=== PATIENT | female | born 1950 | race Caucasian/White ===

== ENCOUNTER → 2016-07-09 | Outpatient (CLI) | payer OTHER ==
[~2016-07-09] MED LIST: ASPIRIN ENTERI325 M1 PO; B12 PO; BYSTOLIC5 MG PO; CALCIUM + VITAM1 TAB PO; COREG3.125 MG PO; DAILY VALUE1 EACH PO; GARLIC1000 MG PO; LISINOPRIL20 MG PO; POTASSIUM99 M1 PO; SIMVASTATIN20 MG PO; VITAMIN C500 MG PO; VITAMIN E400 UNI2 PO
--- NOTE | ~2016-07-09 | MY11 ---
[facility] A Service of [facility] RADIOLOGY TEXT RESULTS PATIENT: REMINGTON VARGHESE LOCATION: [facility] : 54 UNIT #: [id number] AGE: [address]: Sandor Saenz MD SEX: F ORDER DR: [id number] [facility] [address] [place], [place] [address] [id number] MR#: [id number] Acc #: [id number] NAME: REMINGTON VARGHESE : 1950 SEX: F STUDY DATE/TIME: 07/09/2016 11:03 UNIT: [facility] ROOM: STUDY DESCRIPTION: MY Mammogram Screening Dig Sheng Attending Physician: Sandor Saenz M.D. Ordering Physician: Sandor Saenz M.D. Primary Care Physician: Sandor Saenz M.D. MEDICAL IMAGING REPORT This report is preliminary unless electronic signature is present EXAM Screening mammogram 07/09 INDICATIONS 65-year-old with no personal or family history of breast cancer. No current complaints. FINDINGS Routine digital screening views of both breasts were obtained. Study is reviewed with an FDA-approved CAD device. COMPARISON Comparison made with 07/07/2015, 06/07/2014, 12/17/2012, 10/31/2011, 07/28/2010. Breast parenchyma shows scattered fibroglandular densities. There are no new masses or suspicious microcalcifications. IMPRESSION Negative mammogram. Routine screen 1 year recommended. Patients over the age of 40 are entered into a reminder system with target due date for the next mammogram. A result letter will also be sent to the patient. BIRADS: 1 - negative Dictated by... Can Skaggs Jr., M.D. [facility] A Service of [facility] RADIOLOGY TEXT RESULTS PATIENT: REMINGTON VARGHESE LOCATION: [facility] : 54 UNIT #: [id number] AGE: [address]: Sandor Saenz MD SEX: F ORDER DR: THIS IS AN ELECTRONICALLY VERIFIED REPORT Can Skaggs Jr., M.D. at 07/09/2016 4:48 PM BRIONNA/sarah TD: 07/09/2016 14:00 JOB #: [id number] MEDICAL IMAGING REPORT Page 1 of 1 COPY
== END | disposition home or self-care (01) ==
LOC: CWCC 10:34
DX: Z12.31 Encounter for screening mammogram for malignant neoplasm of breast (principal)
CPT/HCPCS: G0202